=== PATIENT | male | born 1980 | race African-American/Black ===

== ENCOUNTER 2016-11-28 16:35 | Emergency (ER) | payer SELFPAY ==
[~2016-11-28] VITALS: Ht 175.3 cm; Wt 106.0 kg
[2016-11-28 16:38] VITALS: BP 199/111; PULSE 92; RESP 16; TEMP 98.7; O2SAT 98
--- NOTE | 2016-11-28 17:07 | PD ---
HPI Chief Complaint: Dizziness Time Seen by Provider: 17:06 Travel History International Travel<30 days: No Contact w/Intl Traveler<30days: No Traveled to known affect area: No History of Present Illness HPI 36 yo M c/o dizziness and headache which he attributes to hypertension. Pt recently relocated to area and has no PMD. Last antihypertensive dose was 4 days ago: carvedilol 25mg BID and hydralazine 37.5mg TID is his regimen. Location cardiovascular. Timing constant. BP 199/111 upon arrival here. PFSH Social History Tobacco Use: Yes Allergies-Medications (Allergen,Severity, Reaction): Coded Allergies: Latex (Verified Allergy, Intermediate, Rash, 11/28/16) Reported Meds & Prescriptions Reported Meds & Active Scripts Active Carvedilol 25 Mg Tab 25 Mg PO BID Hydralazine HCl 25 Mg Tablet 1.5 Tab PO TID Review of Systems Except as stated in HPI: all other systems reviewed are Neg Physical Exam Narrative GENERAL: 36 yo M, WNWD, NAD, speaking full sentences SKIN: Warm and dry. HEAD: Atraumatic. Normocephalic. EYES: Pupils equal and round. No scleral icterus. No injection or drainage. ENT: No nasal bleeding or discharge. Mucous membranes pink and moist. NECK: Trachea midline. No JVD. CARDIOVASCULAR: Regular rate and rhythm. RESPIRATORY: No accessory muscle use. Clear to auscultation. Breath sounds equal bilaterally. GASTROINTESTINAL: Abdomen soft, non-tender, nondistended. Hepatic and splenic margins not palpable. MUSCULOSKELETAL: Extremities without clubbing, cyanosis, or edema. No obvious deformities. NEUROLOGICAL: Awake and alert. No obvious cranial nerve deficits. Motor grossly within normal limits. Five out of 5 muscle strength in the arms and legs. Normal speech. PSYCHIATRIC: Appropriate mood and affect; insight and judgment normal. Data Data Last Documented VS Vital Signs Date Time Temp Pulse Resp B/P Pulse Ox O2 Delivery O2 Flow Rate FiO2 11/28/16 16:38 98.7 92 16 199/111 98 vs reviewed Orders Carvedilol (Coreg) (11/28/16 17:30) Hydralazine (Apresoline) (11/28/16 17:30) MDM Medical Decision Making Medical Screen Exam Complete: Yes Emergency Medical Condition: Yes Medical Record Reviewed: Yes Differential Diagnosis hypertensive emergency, medication refill, essential hypertension Narrative Course Medications refilled with referrals provided to local PMDs. Pt has agreed to follow up as a contract for receiving refills here today. Diagnosis Primary Impression: Hypertension Qualified Code: I10 - Hypertension, unspecified type Additional Impression: Medication refill Referrals: Harrison Frey MD call for appointment [facility] call for appointment Additional Instructions: PLEASE BE CERTAIN TO FOLLOW UP WITH ANY OF THE REFERRALS LISTED ABOVE. You have a choice when it comes to health care, and we are glad that you chose [facility]. Hopefully, we have met your expectations on today's visit. You are welcome to return to [facility] at any time, as we are committed to meeting the health care needs of our community. Med/Other Pt SpecificInfo: Prescription(s) given Scripts Carvedilol 25 Mg Tab25 Mg PO BID #60 TAB Ref 0 Prov:Theron Morales MD 11/28/16 Hydralazine HCl 25 Mg Tablet1.5 Tab PO TID #90 TAB Ref 0 Prov:Theron Morales MD 11/28/16 Disposition: 01 DISCHARGE HOME Condition: Stable Theron Morales MD Nov 28, 2016 17:07
[2016-11-28] MEDS ORDERED: HYDR-3799 PO ×2 (17:09→17:22)
[2016-11-28] MEDS ORDERED: CARV25TA PO ×2 (17:09→17:22)
[2016-11-28] MEDS ORDERED: CARVEDILOL 12.5 MG TAB PO ONE (17:30)
[2016-11-28] MEDS ORDERED: hydrALAZINE HCL 25 MG TAB PO ONE (17:30)
[2016-11-28 18:00] VITALS: BP 185/124; PULSE 80; RESP 16; O2SAT 98
== END 2016-11-28 18:05 | disposition home or self-care (01) ==
LOC: PHED 16:35
DX: I10 Essential (primary) hypertension (principal); R42 Dizziness and giddiness; R51 Headache; Z76.0 Encounter for issue of repeat prescription; Z72.0 Tobacco use
CPT/HCPCS: 99284